=== PATIENT | female | born 1945 | race African-American/Black ===

== ENCOUNTER 2016-08-29 05:45 | Inpatient (IN) | payer MEDICARE, MEDICAID ==
[2016-08-29 06:34] VITALS: BP 160/80
[2016-08-29] MEDS ORDERED: Magnesium Hydroxide (MOM) 30 mL UDC PO PRN (08:40)
[2016-08-29] MEDS: Multivitamin Tab PO SCH (09:00)
[2016-08-29] MEDS: Benztropine 1 MG TAB PO SCH (20:56)
[2016-08-29] MEDS ORDERED: FLUPHENAZINE HCL 10 MG PO SCH (21:00)
--- NOTE | 2016-08-30 02:08 | History & Physical ---
CHIEF COMPLAINT: Medical evaluation and clearance. The patient is admitted to Inpatient Geropsych Unit. HISTORY OF PRESENT ILLNESS: This is a ____[id number] -[place] female with history of hypertension, mental illness and obesity, who was admitted initially from [facility]. Apparently, the patient was found altered. The patient was cleared medically and transferred for further care and treatment. The patient is not the best historian. Denies chest pain or shortness of breath. PAST MEDICAL HISTORY: As mentioned in History of Present Illness. PAST SURGICAL HISTORY: Denies surgeries in the past. ALLERGIES: No known drug allergies. MEDICATIONS: Tylenol, aspirin, Depakote, Colace, fenofibrate, Ativan, Prolixin, ____. FAMILY HISTORY: Noncontributory. SOCIAL HISTORY: The patient is an obvious smoker and drinker in the past. The patient used to work in a kitchen. 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 REVIEW OF SYSTEMS: GENERAL: Complains of not feeling well. HEENT: No blurred vision ____ LUNGS: No COPD or asthma. HEART: The patient has hypertension. She has coronary artery disease. ABDOMEN: No nausea, vomiting or pain. GENITOURINARY: The patient denies increase of frequency or dysuria. NEUROLOGIC: No headache, seizure or syncope. PSYCHIATRIC: Stable. PHYSICAL EXAMINATION: VITAL SIGNS: Blood pressure 160/80, respirations 18, pulse 80, temperature 96. GENERAL: Morbidly obese, elderly female in no acute distress, in a wheelchair. NECK: Supple. No mass. LUNGS: ____ breath sounds, otherwise clear to auscultation. HEART: Regular rate and rhythm without appreciable murmurs. ABDOMEN: Soft and nontender. Positive bowel sounds. Globular. EXTREMITIES: Positive excoriations. NEUROLOGIC: Limited. Moving all 4 extremities. Again, the patient is in a wheelchair. LABORATORY DATA: Laboratories from previous hospitalization with hemoglobin of 10.8, hematocrit 33, WBC 6.3. Chemistries are not available for review at this time. ASSESSMENT: 1. Hypertension. 2. Schizoaffective disorder. 3. ____. PLAN: We will continue the patient on current outpatient medication. We will make some adjustment. The patient is currently on aspirin. We monitor for any signs or symptoms of bleeding. We will have psychiatrist manage the patient for psych issues. We will continue to follow. The patient is medically cleared. We will place her on fall precaution. JOB# [id number]
--- NOTE | 2016-08-30 05:45 | Psychosocial Evaluation ---
IDENTIFYING DATA: The patient is a 71-year-old woman living by herself. Information was obtained by interviewing the patient as well as reviewing the admission papers and they are reliable. JUSTIFICATION FOR HOSPITALIZATION: The patient is admitted here on a voluntary basis in view of her acute psychosis and being gravely disabled. HISTORY OF PRESENT ILLNESS: This is the first psychiatric hospitalization to [facility] for this patient who is reported to have had all the medications ____ and not making any sense and the patient's place is noted to be ____ and she is not able to care for herself. The patient was initially taken to the [facility] in [place] and has been transferred over here for further care. During the evaluation, the patient has been getting easily irritable and angry. Review of the chart indicated that the patient has been on Prolixin and trazodone. The patient is getting easily irritable during the evaluation. Coping skills at the time of the hospitalization are reported to be poor. The patient has been argumentative with the staff members. I tried to calm the patient down. Sleep and appetite at the time of the hospitalization are also reported to be poor. The patient is noted to be very disheveled at the time of the evaluation. The patient has been getting easily upset when I am trying to calm her and ____ her to take the medications. The patient is very paranoid and is constantly asking me that I should contract her son right away and he cannot be in here. PAST PSYCHIATRIC HISTORY: Details are not known. MEDICAL HISTORY: Physical examination is requested to be done by Dr. Fuentes. SUBSTANCE ABUSE HISTORY: None. PHYSICAL OR SEXUAL ABUSE HISTORY: Details are not known. MENTAL STATUS EXAMINATION: The patient is a 71-year-old woman looking her stated age, superficially cooperative. Eye contact is poor. Mood is noted to be irritable. Affect is constricted. Insight and judgment at this time are noted to be very much impaired. Impulse control seems to be poor. Coping skills are also noted to be poor. The patient has paranoid delusions, but denies any command hallucinations. The patient is not able to contract for safety at this time. The patient is also gravely disabled. The patient is alert and oriented x3. Short term and long-term memories are poor at this time. DIAGNOSTIC IMPRESSION: AXIS I: Schizophrenia, chronic paranoid type. AXIS II: None. AXIS III: As per Dr. Fuentes. IMMEDIATE TREATMENT PLAN: The patient is going to be observed on the Inpatient Unit, provided with supportive psychotherapy. The patient is going to be closely monitored. Once stabilized, the patient is going to be discharged to [facility] to be followed up on an outpatient basis. JOB# [id number]
[2016-08-30] MEDS ORDERED: Non-Formulary Item 1 EA (Atenolol [Atenolol] 50 MG) PO SCH (09:00)
[2016-08-30] MEDS: Multivitamin Tab PO SCH ×2 (09:08→09:39)
[2016-08-30 11:29] LABS: BNP 22.6 pg/mL (5.0-100.0)
[2016-08-30 11:57] LABS: ALB/GLOB RATIO 0.7 (1.0-1.8); ALKALINE PHOSPHATASE 59 U/L (34-104); ANION GAP 5.1 (7.0-16.0); BILIRUBIN,TOTAL 0.4 mg/dL (0.3-1.0); BUN - UREA NITROGEN 9 mg/dL (7-25); BUN/CREATININE RATIO 12.9; CALCIUM SERUM 9.6 mg/dL (8.6-10.3); CARBON DIOXIDE 29.5 mEq/L (21.0-31.0); CHLORIDE 101 mEq/L (98-107); CHOLESTEROL 148 mg/dL (<200); CREATININE - SERUM 0.7 mg/dL (0.6-1.2); GLUCOSE 126 mg/dL (70-105); POTASSIUM SERUM 3.6 mEq/L (3.5-5.1); SGOT 21 U/L (13-39); SGPT/ALT 16 U/L (7-52); SODIUM SERUM 132 mEq/L (136-145); TRIGLYCERIDES 72 mg/dL (<150)
[2016-08-30 12:09] LABS: TSH 1.74 uIU/ml (0.34-5.60)
--- NOTE | 2016-08-30 13:46 | Internal Medicine Prog Note ---
Internal Medicine Subjective - Subjective Patient seen and examined:: with staff, chart reviewed Patient is:: verbal, interactive, in wheelchair Per staff patient is:: no adverse event, noncompliant, confused Internal Medicine Objective - Results Result Diagrams: 08/30/16 10:50 Recent Labs: Laboratory Last Values Sodium 132 mEq/L (136-145) L 08/30/16 10:50 Potassium 3.6 mEq/L (3.5-5.1) 08/30/16 10:50 Chloride 101 mEq/L (98-107) 08/30/16 10:50 Carbon Dioxide 29.5 mEq/L (21.0-31.0) 08/30/16 10:50 Anion Gap 5.1 (7.0-16.0) L 08/30/16 10:50 BUN 9 mg/dL (7-25) 08/30/16 10:50 Creatinine 0.7 mg/dL (0.6-1.2) 08/30/16 10:50 Est GFR ( Amer) TNP 08/30/16 10:50 Est GFR (Non-Af Amer) TNP 08/30/16 10:50 BUN/Creatinine Ratio 12.9 08/30/16 10:50 Glucose 126 mg/dL (70-105) H 08/30/16 10:50 Calcium 9.6 mg/dL (8.6-10.3) 08/30/16 10:50 Total Bilirubin 0.4 mg/dL (0.3-1.0) 08/30/16 10:50 AST 21 U/L (13-39) 08/30/16 10:50 ALT 16 U/L (7-52) 08/30/16 10:50 Alkaline Phosphatase 59 U/L (34-104) 08/30/16 10:50 Ammonia 28 umol/L (16-53) 08/30/16 10:50 B-Natriuretic Peptide 22.6 pg/mL (5.0-100.0) 08/30/16 10:50 Total Protein 7.1 gm/dL (6.0-8.3) 08/30/16 10:50 Albumin 2.9 gm/dL (3.7-5.3) L 08/30/16 10:50 Globulin 4.2 gm/dL 08/30/16 10:50 Albumin/Globulin Ratio 0.7 (1.0-1.8) L 08/30/16 10:50 Triglycerides 72 mg/dL (<150) 08/30/16 10:50 Cholesterol 148 mg/dL (<200) 08/30/16 10:50 LDL Cholesterol Direct 99 mg/dL (75-193) 08/30/16 10:50 HDL Cholesterol 27 mg/dL (23-92) 08/30/16 10:50 TSH 1.74 uIU/ml (0.34-5.60) 08/30/16 10:50 - Physical Exam Vitals and I&O: Vital Signs Temp 98 F 08/30/16 06:12 Pulse 101 08/30/16 09:38 Resp 20 08/30/16 12:29 BP 152/95 08/30/16 09:38 Pulse Ox 96 08/30/16 06:12 Intake & Output 08/29/16 08/30/16 08/30/16 18:59 06:59 18:59 Intake Total 800 120 Balance 800 120 Intake: Oral 800 120 Other: # Voids 3 3 # Bowel Movements 0 0 Stool Characteristics Formed Active Medications: Current Medications Acetaminophen (Tylenol) 650 mg PO Q4HR PRN PRN Reason: Pain (Mild) Stop: 10/28/16 08:39 Aspirin (Ecotrin) 81 mg PO DAILY [facility] Stop: 10/29/16 08:59 Last Admin: 08/30/16 09:38 Dose: 81 mg Atenolol (Tenormin) 50 mg PO DAILY [facility] Stop: 10/29/16 08:59 Last Admin: 08/30/16 09:38 Dose: 50 mg Benztropine Mesylate (Cogentin) 1 mg PO [facility] Stop: 10/28/16 20:59 Last Admin: 08/29/16 20:56 Dose: Not Given Fluphenazine HCl (Prolixin) 5 mg PO BID [facility] PRN Reason: Protocol Stop: 10/28/16 16:59 Last Admin: 08/30/16 09:39 Dose: 5 mg Fluphenazine HCl (Prolixin) 10 mg PO HS [facility] Stop: 10/28/16 20:59 Last Admin: 08/29/16 20:56 Dose: Not Given Hydrochlorothiazide (Hctz) 25 mg PO DAILY [facility] Stop: 10/29/16 08:59 Last Admin: 08/30/16 09:38 Dose: 25 mg Lorazepam (Ativan) 0.5 mg PO Q4HR PRN; Protocol PRN Reason: Anxiety Stop: 09/28/16 08:39 Multivitamins/Vitamin C (Theragran) 1 tab PO DAILY [facility] Stop: 10/28/16 08:59 Last Admin: 08/30/16 09:39 Dose: 1 tab Trazodone HCl (Desyrel) 50 mg PO HS PRN; Protocol PRN Reason: Insomnia Stop: 10/28/16 20:59 Zolpidem Tartrate (Ambien) 5 mg PO HS PRN PRN Reason: Insomnia Stop: 10/28/16 08:39 General: demented HEENT: NC/AT, PERRLA Neck: Supple, No JVD Lungs: CTAB Cardiovascular: RRR, Normal S1, Normal S2 Abdomen: soft non-tender, globular, positive bowel sound Extremities: excoriation Neurological: no change, disorganized, unable to follow command Internal Medicine Assmt/Plan - Assessment Assessment: htn obesity gait unstable - Plan Plan: cont on bp meds clonidine prn dw rn labs noted fall precaution
[2016-08-30] MEDS: Benztropine 1 MG TAB PO SCH (20:48)
--- NOTE | 2016-08-30 23:30 | Admit Criteria Form ---
Admit Criteria Forms - Admit Criteria Diagnosis: PSYCHIATRIC DISORDERS Clinical Indications for Inpatient Care (Place 'X' for any and all applicable criteria): Ongoing inpatient care may be needed for ANY ONE of the following(1)(2)(3)(4)(6) (7)(8): [ ]I. Danger to self or others not manageable at lower level of care. [X]II. Grave disability (eg, inability to perform self care necessary at lower level of care) [ ]III. Agitation or inappropriate behavior interfering with care for primary condition (eg, attempting to discontinue lines or drains prematurely, unable to cooperate with respiratory care) [ ]IV. Severe disability or disorder indicated by ALL of the following: [ ]a) Severe behavioral health disorder-related symptoms or condition indicated by ANY ONE of the following: [ ]i) Severe problem with cognition, memory, judgment, or impulse control [ ]ii) Severe clinical manifestations (eg, hallucinations, delusions, other acute psychotic symptoms, petros, extreme agitation or anxiety) [ ]b) Patient management at lower level of care is not feasible until acute intervention or modification is initiated. Extended stay beyond goal length of stay for the primary condition may be indicated when ANY ONE of the following is present: (1)(2)(3)(4): [ ]a) Patient is a danger to self or others and not manageable at lower level of care. [ ]b) Behavior crisis management, including physical or chemical restraints, is required and is not available at a lower level of care. [ ]c) Behavioral symptoms (e.g., agitation, somnolence, inappropriate behavior) are present, and are not manageable at a lower level of care. [ ]d) Patient cannot understand follow-up treatment and crisis plan. [ ]e) Provider and supports are not sufficiently available at lower level of care. [ ]f) Patient cannot participate (e.g., verify absence of plan for harm) and is in needed of monitoring. The original [facility] [employer] content created by [facility] [employer] has been revised. The portions of the content which have been revised are identified through the use of italic text or in bold, and [facility] has neither reviewed nor approved the modified material. All other unmodified content is copyright [facility] [employer]. Please see references footnoted in the original [facility] edition 2016 Admit Criteria Met?: Yes
--- NOTE | 2016-08-31 03:26 | Progress Notes ---
SUBJECTIVE: The patient was seen, discussed with staff, and chart reviewed. Remains guarded, still paranoid, irritable, still easily agitated, suspicious. The patient, however, is taking her medications, does not appear to have any side effects. She is currently taking Prolixin 5 mg p.o. b.i.d. and 10 mg p.o. at bedtime, and she is on Cogentin 1 mg p.o. at bedtime. Insight is still limited. Judgment remains impaired. ASSESSMENT: The patient is still in psychotic phase. PLAN: We will continue hospitalization. Continue stabilization. Continue supportive measures. [facility]# [id number]
[2016-08-31] MEDS: Multivitamin Tab PO SCH (09:04)
[2016-08-31 13:12] LABS: FOLIC ACID 14.2 ng/mL (>3.0)
--- NOTE | 2016-08-31 15:48 | Internal Medicine Prog Note ---
Internal Medicine Subjective - Subjective Patient seen and examined:: with staff, chart reviewed Patient is:: awake, interactive Per staff patient is:: no adverse event, noncompliant, confused Internal Medicine Objective - Results Result Diagrams: 08/30/16 10:50 Recent Labs: Laboratory Last Values Sodium 132 mEq/L (136-145) L 08/30/16 10:50 Potassium 3.6 mEq/L (3.5-5.1) 08/30/16 10:50 Chloride 101 mEq/L (98-107) 08/30/16 10:50 Carbon Dioxide 29.5 mEq/L (21.0-31.0) 08/30/16 10:50 Anion Gap 5.1 (7.0-16.0) L 08/30/16 10:50 BUN 9 mg/dL (7-25) 08/30/16 10:50 Creatinine 0.7 mg/dL (0.6-1.2) 08/30/16 10:50 Est GFR ( Amer) TNP 08/30/16 10:50 Est GFR (Non-Af Amer) TNP 08/30/16 10:50 BUN/Creatinine Ratio 12.9 08/30/16 10:50 Glucose 126 mg/dL (70-105) H 08/30/16 10:50 Calcium 9.6 mg/dL (8.6-10.3) 08/30/16 10:50 Total Bilirubin 0.4 mg/dL (0.3-1.0) 08/30/16 10:50 AST 21 U/L (13-39) 08/30/16 10:50 ALT 16 U/L (7-52) 08/30/16 10:50 Alkaline Phosphatase 59 U/L (34-104) 08/30/16 10:50 Ammonia 28 umol/L (16-53) 08/30/16 10:50 B-Natriuretic Peptide 22.6 pg/mL (5.0-100.0) 08/30/16 10:50 Total Protein 7.1 gm/dL (6.0-8.3) 08/30/16 10:50 Albumin 2.9 gm/dL (3.7-5.3) L 08/30/16 10:50 Globulin 4.2 gm/dL 08/30/16 10:50 Albumin/Globulin Ratio 0.7 (1.0-1.8) L 08/30/16 10:50 Triglycerides 72 mg/dL (<150) 08/30/16 10:50 Cholesterol 148 mg/dL (<200) 08/30/16 10:50 LDL Cholesterol Direct 99 mg/dL (75-193) 08/30/16 10:50 HDL Cholesterol 27 mg/dL (23-92) 08/30/16 10:50 Vitamin B12 367 pg/mL (211-946) 08/30/16 10:50 Folic Acid 14.2 ng/mL (>3.0) 08/30/16 10:50 TSH 1.74 uIU/ml (0.34-5.60) 08/30/16 10:50 - Physical Exam Vitals and I&O: Vital Signs Temp 97 F 08/31/16 14:21 Pulse 76 08/31/16 14:21 Resp 19 08/31/16 14:21 BP 137/84 08/31/16 14:21 Pulse Ox 96 08/31/16 14:21 Intake & Output 08/30/16 08/31/16 08/31/16 18:59 06:59 18:59 Intake Total 2400 120 Balance 2400 120 Intake: Oral 2400 120 Other: # Voids 4 2 # Bowel Movements 0 0 Active Medications: Current Medications Acetaminophen (Tylenol) 650 mg PO Q4HR PRN PRN Reason: Pain (Mild) Stop: 10/28/16 08:39 Aspirin (Ecotrin) 81 mg PO DAILY [facility] Stop: 10/29/16 08:59 Last Admin: 08/31/16 09:02 Dose: 81 mg Atenolol (Tenormin) 50 mg PO DAILY [facility] Stop: 10/29/16 08:59 Last Admin: 08/31/16 09:02 Dose: 50 mg Benztropine Mesylate (Cogentin) 1 mg PO HS [facility] Stop: 10/28/16 20:59 Last Admin: 08/30/16 20:48 Dose: Not Given Fluphenazine HCl (Prolixin) 5 mg PO BID [facility] PRN Reason: Protocol Stop: 10/28/16 16:59 Last Admin: 08/31/16 09:03 Dose: 5 mg Fluphenazine HCl (Prolixin) 10 mg PO HS [facility] Stop: 10/28/16 20:59 Last Admin: 08/30/16 20:48 Dose: Not Given Hydrochlorothiazide (Hctz) 25 mg PO DAILY [facility] Stop: 10/29/16 08:59 Last Admin: 08/31/16 09:03 Dose: 25 mg Lorazepam (Ativan) 0.5 mg PO Q4HR PRN; Protocol PRN Reason: Anxiety Stop: 09/28/16 08:39 Multivitamins/Vitamin C (Theragran) 1 tab PO DAILY [facility] Stop: 10/28/16 08:59 Last Admin: 08/31/16 09:04 Dose: 1 tab Trazodone HCl (Desyrel) 50 mg PO HS PRN; Protocol PRN Reason: Insomnia Stop: 10/28/16 20:59 Zolpidem Tartrate (Ambien) 5 mg PO HS PRN PRN Reason: Insomnia Stop: 10/28/16 08:39 General: demented HEENT: NC/AT, PERRLA Neck: Supple, No JVD Lungs: CTAB Cardiovascular: RRR, Normal S1, Normal S2 Abdomen: soft non-tender, globular, positive bowel sound Extremities: excoriation Neurological: no change Internal Medicine Assmt/Plan - Assessment Assessment: htn obesity gait unstable - Plan Plan: cont on bp meds clonidine prn dw rn labs noted fall precaution
[2016-08-31] MEDS: Benztropine 1 MG TAB PO SCH (20:29)
--- NOTE | 2016-09-01 05:47 | Progress Notes ---
SUBJECTIVE: The patient was seen, discussed with staff. Still guarded, paranoid, irritable, still episodes where she is suspicious and talking to herself. The patient, however, is taking her medication. Her sleep and appetite are fair. Her insight remains poor, judgment remains impaired. ASSESSMENT: The patient still in psychotic phase. PLAN: Continue medication management. Continue hospitalization. Continue current dose of Prolixin. [facility]# [id number]
[2016-09-01] MEDS: Multivitamin Tab PO SCH (08:08)
[2016-09-01] MEDS ORDERED: Haloperidol Lactate 5 mg/mL 1mL Vial ONE (10:03)
[2016-09-01] MEDS ORDERED: Haloperidol Lactate 5 mg/mL 1mL Vial IM ONE (10:05)
--- NOTE | 2016-09-01 15:17 | Internal Medicine Prog Note ---
Internal Medicine Subjective - Subjective Patient seen and examined:: with staff, chart reviewed Patient is:: awake, verbal, interactive Per staff patient is:: no adverse event, eating well, noncompliant Internal Medicine Objective - Results Result Diagrams: 08/30/16 10:50 Recent Labs: Laboratory Last Values Sodium 132 mEq/L (136-145) L 08/30/16 10:50 Potassium 3.6 mEq/L (3.5-5.1) 08/30/16 10:50 Chloride 101 mEq/L (98-107) 08/30/16 10:50 Carbon Dioxide 29.5 mEq/L (21.0-31.0) 08/30/16 10:50 Anion Gap 5.1 (7.0-16.0) L 08/30/16 10:50 BUN 9 mg/dL (7-25) 08/30/16 10:50 Creatinine 0.7 mg/dL (0.6-1.2) 08/30/16 10:50 Est GFR ( Amer) TNP 08/30/16 10:50 Est GFR (Non-Af Amer) TNP 08/30/16 10:50 BUN/Creatinine Ratio 12.9 08/30/16 10:50 Glucose 126 mg/dL (70-105) H 08/30/16 10:50 Calcium 9.6 mg/dL (8.6-10.3) 08/30/16 10:50 Total Bilirubin 0.4 mg/dL (0.3-1.0) 08/30/16 10:50 AST 21 U/L (13-39) 08/30/16 10:50 ALT 16 U/L (7-52) 08/30/16 10:50 Alkaline Phosphatase 59 U/L (34-104) 08/30/16 10:50 Ammonia 28 umol/L (16-53) 08/30/16 10:50 B-Natriuretic Peptide 22.6 pg/mL (5.0-100.0) 08/30/16 10:50 Total Protein 7.1 gm/dL (6.0-8.3) 08/30/16 10:50 Albumin 2.9 gm/dL (3.7-5.3) L 08/30/16 10:50 Globulin 4.2 gm/dL 08/30/16 10:50 Albumin/Globulin Ratio 0.7 (1.0-1.8) L 08/30/16 10:50 Triglycerides 72 mg/dL (<150) 08/30/16 10:50 Cholesterol 148 mg/dL (<200) 08/30/16 10:50 LDL Cholesterol Direct 99 mg/dL (75-193) 08/30/16 10:50 HDL Cholesterol 27 mg/dL (23-92) 08/30/16 10:50 Vitamin B12 367 pg/mL (211-946) 08/30/16 10:50 Folic Acid 14.2 ng/mL (>3.0) 08/30/16 10:50 TSH 1.74 uIU/ml (0.34-5.60) 08/30/16 10:50 - Physical Exam Vitals and I&O: Vital Signs Temp 98.0 F 09/01/16 14:00 Pulse 70 09/01/16 14:00 Resp 19 09/01/16 14:08 BP 138/60 09/01/16 14:00 Pulse Ox 97 09/01/16 14:00 Intake & Output 08/31/16 09/01/16 09/01/16 18:59 06:59 18:59 Intake Total 1900 240 Balance 1900 240 Intake: Oral 1900 240 Other: # Voids 3 3 # Bowel Movements 1 0 Active Medications: Current Medications Acetaminophen (Tylenol) 650 mg PO Q4HR PRN PRN Reason: Pain (Mild) Stop: 10/28/16 08:39 Aspirin (Ecotrin) 81 mg PO DAILY [facility] Stop: 10/29/16 08:59 Last Admin: 09/01/16 08:06 Dose: 81 mg Atenolol (Tenormin) 50 mg PO DAILY [facility] Stop: 10/29/16 08:59 Last Admin: 09/01/16 08:06 Dose: 50 mg Benztropine Mesylate (Cogentin) 1 mg PO HS [facility] Stop: 10/28/16 20:59 Last Admin: 08/31/16 20:29 Dose: 1 mg Fluphenazine HCl (Prolixin) 5 mg PO BID [facility] PRN Reason: Protocol Stop: 10/28/16 16:59 Last Admin: 09/01/16 08:07 Dose: 5 mg Fluphenazine HCl (Prolixin) 10 mg PO HS [facility] Stop: 10/28/16 20:59 Last Admin: 08/31/16 20:29 Dose: 10 mg Hydrochlorothiazide (Hctz) 25 mg PO DAILY [facility] Stop: 10/29/16 08:59 Last Admin: 09/01/16 08:08 Dose: 25 mg Lorazepam (Ativan) 0.5 mg PO Q4HR PRN; Protocol PRN Reason: Anxiety Stop: 09/28/16 08:39 Multivitamins/Vitamin C (Theragran) 1 tab PO DAILY [facility] Stop: 10/28/16 08:59 Last Admin: 09/01/16 08:08 Dose: 1 tab Trazodone HCl (Desyrel) 50 mg PO HS PRN; Protocol PRN Reason: Insomnia Stop: 10/28/16 20:59 Zolpidem Tartrate (Ambien) 5 mg PO HS PRN PRN Reason: Insomnia Stop: 10/28/16 08:39 Last Admin: 08/31/16 23:26 Dose: 5 mg General: demented HEENT: NC/AT, PERRLA Neck: Supple, No JVD Lungs: CTAB Cardiovascular: RRR, Normal S1, Normal S2 Abdomen: soft non-tender, globular, positive bowel sound Extremities: excoriation Neurological: no change Internal Medicine Assmt/Plan - Assessment Assessment: htn obesity gait unstable - Plan Plan: cont on bp meds clonidine prn dw rn labs noted fall precaution
[2016-09-01] MEDS: Benztropine 1 MG TAB PO SCH (21:45)
[2016-09-02] MEDS: Multivitamin Tab PO SCH (08:57)
--- NOTE | 2016-09-02 13:00 | Internal Medicine Prog Note ---
Internal Medicine Subjective - Subjective Patient seen and examined:: with staff, chart reviewed Patient is:: awake, verbal, interactive Per staff patient is:: no adverse event, confused Internal Medicine Objective - Results Result Diagrams: 08/30/16 10:50 Recent Labs: Laboratory Last Values Sodium 132 mEq/L (136-145) L 08/30/16 10:50 Potassium 3.6 mEq/L (3.5-5.1) 08/30/16 10:50 Chloride 101 mEq/L (98-107) 08/30/16 10:50 Carbon Dioxide 29.5 mEq/L (21.0-31.0) 08/30/16 10:50 Anion Gap 5.1 (7.0-16.0) L 08/30/16 10:50 BUN 9 mg/dL (7-25) 08/30/16 10:50 Creatinine 0.7 mg/dL (0.6-1.2) 08/30/16 10:50 Est GFR ( Amer) TNP 08/30/16 10:50 Est GFR (Non-Af Amer) TNP 08/30/16 10:50 BUN/Creatinine Ratio 12.9 08/30/16 10:50 Glucose 126 mg/dL (70-105) H 08/30/16 10:50 Calcium 9.6 mg/dL (8.6-10.3) 08/30/16 10:50 Total Bilirubin 0.4 mg/dL (0.3-1.0) 08/30/16 10:50 AST 21 U/L (13-39) 08/30/16 10:50 ALT 16 U/L (7-52) 08/30/16 10:50 Alkaline Phosphatase 59 U/L (34-104) 08/30/16 10:50 Ammonia 28 umol/L (16-53) 08/30/16 10:50 B-Natriuretic Peptide 22.6 pg/mL (5.0-100.0) 08/30/16 10:50 Total Protein 7.1 gm/dL (6.0-8.3) 08/30/16 10:50 Albumin 2.9 gm/dL (3.7-5.3) L 08/30/16 10:50 Globulin 4.2 gm/dL 08/30/16 10:50 Albumin/Globulin Ratio 0.7 (1.0-1.8) L 08/30/16 10:50 Triglycerides 72 mg/dL (<150) 08/30/16 10:50 Cholesterol 148 mg/dL (<200) 08/30/16 10:50 LDL Cholesterol Direct 99 mg/dL (75-193) 08/30/16 10:50 HDL Cholesterol 27 mg/dL (23-92) 08/30/16 10:50 Vitamin B12 367 pg/mL (211-946) 08/30/16 10:50 Folic Acid 14.2 ng/mL (>3.0) 08/30/16 10:50 TSH 1.74 uIU/ml (0.34-5.60) 08/30/16 10:50 - Physical Exam Vitals and I&O: Vital Signs Temp 98.6 F 09/02/16 07:06 Pulse 83 09/02/16 08:58 Resp 83 09/02/16 08:00 BP 142/77 09/02/16 08:58 Pulse Ox 97 09/02/16 07:06 Intake & Output 09/01/16 09/02/16 09/02/16 18:59 06:59 18:59 Intake Total 700 Balance 700 Intake: Oral 700 Other: # Voids 3 # Bowel Movements 0 Active Medications: Current Medications Acetaminophen (Tylenol) 650 mg PO Q4HR PRN PRN Reason: Pain (Mild) Stop: 10/28/16 08:39 Aspirin (Ecotrin) 81 mg PO DAILY [facility] Stop: 10/29/16 08:59 Last Admin: 09/02/16 08:57 Dose: 81 mg Atenolol (Tenormin) 50 mg PO DAILY [facility] Stop: 10/29/16 08:59 Last Admin: 09/02/16 08:58 Dose: 50 mg Benztropine Mesylate (Cogentin) 1 mg PO HS [facility] Stop: 10/28/16 20:59 Last Admin: 09/01/16 21:45 Dose: Not Given Fluphenazine HCl (Prolixin) 5 mg PO BID [facility] PRN Reason: Protocol Stop: 10/28/16 16:59 Last Admin: 09/02/16 08:58 Dose: 5 mg Fluphenazine HCl (Prolixin) 10 mg PO HS [facility] Stop: 10/28/16 20:59 Last Admin: 09/01/16 21:45 Dose: Not Given Hydrochlorothiazide (Hctz) 25 mg PO DAILY [facility] Stop: 10/29/16 08:59 Last Admin: 09/02/16 08:58 Dose: 25 mg Lorazepam (Ativan) 0.5 mg PO Q4HR PRN; Protocol PRN Reason: Anxiety Stop: 09/28/16 08:39 Multivitamins/Vitamin C (Theragran) 1 tab PO DAILY [facility] Stop: 10/28/16 08:59 Last Admin: 09/02/16 08:57 Dose: 1 tab Trazodone HCl (Desyrel) 50 mg PO HS PRN; Protocol PRN Reason: Insomnia Stop: 10/28/16 20:59 Zolpidem Tartrate (Ambien) 5 mg PO HS PRN PRN Reason: Insomnia Stop: 10/28/16 08:39 Last Admin: 08/31/16 23:26 Dose: 5 mg General: demented HEENT: NC/AT, PERRLA Neck: Supple, No JVD Lungs: CTAB Cardiovascular: RRR, Normal S1, Normal S2 Abdomen: soft non-tender, globular, positive bowel sound Extremities: excoriation Neurological: no change Internal Medicine Assmt/Plan - Assessment Assessment: htn obesity gait unstable - Plan Plan: cont on bp meds clonidine prn dw rn labs noted fall precaution
[2016-09-02] MEDS: Benztropine 1 MG TAB PO SCH (20:16)
--- NOTE | 2016-09-02 21:29 | Progress Notes ---
PSYCHIATRIC FOLLOWUP/PROGRESS NOTE: SUBJECTIVE: The patient is seen in Inpatient Unit. The patient is on trial medications for psychosis and diagnosis of schizophrenia. She is on trial of medications, trial of Prolixin for acute psychosis. She was placed on a 5150 for paranoid delusions, anxiety, restlessness and confusion. She continues to be argumentative, making threatening statements towards staff and does need frequent redirections and needs p.r.n. for escalations. She is still paranoid, unable to describe plans of care, unable to contract for safety. The patient has been on trial of medications, trial of Prolixin 10 mg per day with Navdeep p.r.n. The patient was placed originally on a hold. She was placed at [facility], admitted to ER for altered mental status. She was found to enter her house, ____ smoke or ____. Fire department had to break down the door to get her up. She had medications, unable to care for herself, was placed on a hold by police. PLAN: Plan is to continue close observation, continue hold status, continue 14-day hold. We will work on her medication compliance. JOB# [id number]
[2016-09-03] MEDS: Multivitamin Tab PO SCH (08:44)
--- NOTE | 2016-09-03 10:26 | Progress Notes ---
The patient was seen in inpatient unit. The patient was trialed medications for severe psychosis, trial of Prolixin. She is tolerating medications. She has no side effects. She remained delusional and paranoid, fearful, suspicious, ____ unable to contract for safety. She is refusing placement as she wants to live on the streets. She believes people are conspiring against her, so she only wants to work with black people. At this time, she remains on hold status. We are adjusting medications and titrating Prolixin for symptom relief; warning for side effects; encouraging group therapy. JOB# [id number]
--- NOTE | 2016-09-03 14:52 | Internal Medicine Prog Note ---
Internal Medicine Subjective - Subjective Patient seen and examined:: with staff, chart reviewed Patient is:: verbal, interactive Per staff patient is:: no adverse event, noncompliant, confused Internal Medicine Objective - Results Result Diagrams: 08/30/16 10:50 Recent Labs: Laboratory Last Values Sodium 132 mEq/L (136-145) L 08/30/16 10:50 Potassium 3.6 mEq/L (3.5-5.1) 08/30/16 10:50 Chloride 101 mEq/L (98-107) 08/30/16 10:50 Carbon Dioxide 29.5 mEq/L (21.0-31.0) 08/30/16 10:50 Anion Gap 5.1 (7.0-16.0) L 08/30/16 10:50 BUN 9 mg/dL (7-25) 08/30/16 10:50 Creatinine 0.7 mg/dL (0.6-1.2) 08/30/16 10:50 Est GFR ( Amer) TNP 08/30/16 10:50 Est GFR (Non-Af Amer) TNP 08/30/16 10:50 BUN/Creatinine Ratio 12.9 08/30/16 10:50 Glucose 126 mg/dL (70-105) H 08/30/16 10:50 Calcium 9.6 mg/dL (8.6-10.3) 08/30/16 10:50 Total Bilirubin 0.4 mg/dL (0.3-1.0) 08/30/16 10:50 AST 21 U/L (13-39) 08/30/16 10:50 ALT 16 U/L (7-52) 08/30/16 10:50 Alkaline Phosphatase 59 U/L (34-104) 08/30/16 10:50 Ammonia 28 umol/L (16-53) 08/30/16 10:50 B-Natriuretic Peptide 22.6 pg/mL (5.0-100.0) 08/30/16 10:50 Total Protein 7.1 gm/dL (6.0-8.3) 08/30/16 10:50 Albumin 2.9 gm/dL (3.7-5.3) L 08/30/16 10:50 Globulin 4.2 gm/dL 08/30/16 10:50 Albumin/Globulin Ratio 0.7 (1.0-1.8) L 08/30/16 10:50 Triglycerides 72 mg/dL (<150) 08/30/16 10:50 Cholesterol 148 mg/dL (<200) 08/30/16 10:50 LDL Cholesterol Direct 99 mg/dL (75-193) 08/30/16 10:50 HDL Cholesterol 27 mg/dL (23-92) 08/30/16 10:50 Vitamin B12 367 pg/mL (211-946) 08/30/16 10:50 Folic Acid 14.2 ng/mL (>3.0) 08/30/16 10:50 TSH 1.74 uIU/ml (0.34-5.60) 08/30/16 10:50 - Physical Exam Vitals and I&O: Vital Signs Temp 98.8 F 09/02/16 14:00 Pulse 79 09/03/16 08:43 Resp 19 09/03/16 08:00 BP 156/97 09/03/16 08:43 Pulse Ox 97 09/02/16 14:00 Intake & Output 09/02/16 09/03/16 09/03/16 18:59 06:59 18:59 Intake Total 1200 Balance 1200 Weight (lbs) 111.584 kg Intake: Oral 1200 Other: # Voids 3 # Bowel Movements 1 Active Medications: Current Medications Acetaminophen (Tylenol) 650 mg PO Q4HR PRN PRN Reason: Pain (Mild) Stop: 10/28/16 08:39 Aspirin (Ecotrin) 81 mg PO DAILY [facility] Stop: 10/29/16 08:59 Last Admin: 09/03/16 08:44 Dose: 81 mg Atenolol (Tenormin) 50 mg PO DAILY [facility] Stop: 10/29/16 08:59 Last Admin: 09/03/16 08:43 Dose: 50 mg Benztropine Mesylate (Cogentin) 1 mg PO HS [facility] Stop: 10/28/16 20:59 Last Admin: 09/02/16 20:16 Dose: 1 mg Fluphenazine HCl (Prolixin) 5 mg PO BID [facility] PRN Reason: Protocol Stop: 10/28/16 16:59 Last Admin: 09/03/16 08:44 Dose: 5 mg Fluphenazine HCl (Prolixin) 10 mg PO HS [facility] Stop: 10/28/16 20:59 Last Admin: 09/02/16 20:17 Dose: 10 mg Hydrochlorothiazide (Hctz) 25 mg PO DAILY [facility] Stop: 10/29/16 08:59 Last Admin: 09/03/16 08:42 Dose: 25 mg Lorazepam (Ativan) 0.5 mg PO Q4HR PRN; Protocol PRN Reason: Anxiety Stop: 09/28/16 08:39 Multivitamins/Vitamin C (Theragran) 1 tab PO DAILY [facility] Stop: 10/28/16 08:59 Last Admin: 09/03/16 08:44 Dose: 1 tab Trazodone HCl (Desyrel) 50 mg PO HS PRN; Protocol PRN Reason: Insomnia Stop: 10/28/16 20:59 Zolpidem Tartrate (Ambien) 5 mg PO HS PRN PRN Reason: Insomnia Stop: 10/28/16 08:39 Last Admin: 09/03/16 01:20 Dose: 5 mg General: demented HEENT: NC/AT, PERRLA Neck: Supple, No JVD Lungs: CTAB Cardiovascular: RRR, Normal S1, Normal S2 Abdomen: globular, positive bowel sound Extremities: excoriation Neurological: no change Internal Medicine Assmt/Plan - Assessment Assessment: htn obesity gait unstable - Plan Plan: cont on bp meds clonidine prn dw rn labs noted fall precaution
[2016-09-03] MEDS: Benztropine 1 MG TAB PO SCH (20:33)
--- NOTE | 2016-09-04 06:43 | Progress Notes ---
The patient is seen in the Inpatient Unit. The patient is on trial of medications for severe psychosis. She is paranoid, delusional, responding to internal stimuli. She is still argumentative and delusional, does not know where she would go. She was AWOL from the hospital, unable to take care of herself, no viable plan for self-care. She does not want to go to her hearing. She did not attend her probable cause hearing. She is easily agitated and aggressive. We will work with her towards placement and stabilization. Continue Prolixin for severe psychosis. JOB# [id number]
[2016-09-04] MEDS: Multivitamin Tab PO SCH (09:36)
--- NOTE | 2016-09-04 15:03 | Internal Medicine Prog Note ---
Internal Medicine Subjective - Subjective Service Date: 09/04/16 Patient seen and examined:: with staff Patient is:: awake Per staff patient is:: no adverse event Internal Medicine Objective - Results Result Diagrams: 08/30/16 10:50 Recent Labs: Laboratory Last Values Sodium 132 mEq/L (136-145) L 08/30/16 10:50 Potassium 3.6 mEq/L (3.5-5.1) 08/30/16 10:50 Chloride 101 mEq/L (98-107) 08/30/16 10:50 Carbon Dioxide 29.5 mEq/L (21.0-31.0) 08/30/16 10:50 Anion Gap 5.1 (7.0-16.0) L 08/30/16 10:50 BUN 9 mg/dL (7-25) 08/30/16 10:50 Creatinine 0.7 mg/dL (0.6-1.2) 08/30/16 10:50 Est GFR ( Amer) TNP 08/30/16 10:50 Est GFR (Non-Af Amer) TNP 08/30/16 10:50 BUN/Creatinine Ratio 12.9 08/30/16 10:50 Glucose 126 mg/dL (70-105) H 08/30/16 10:50 Calcium 9.6 mg/dL (8.6-10.3) 08/30/16 10:50 Total Bilirubin 0.4 mg/dL (0.3-1.0) 08/30/16 10:50 AST 21 U/L (13-39) 08/30/16 10:50 ALT 16 U/L (7-52) 08/30/16 10:50 Alkaline Phosphatase 59 U/L (34-104) 08/30/16 10:50 Ammonia 28 umol/L (16-53) 08/30/16 10:50 B-Natriuretic Peptide 22.6 pg/mL (5.0-100.0) 08/30/16 10:50 Total Protein 7.1 gm/dL (6.0-8.3) 08/30/16 10:50 Albumin 2.9 gm/dL (3.7-5.3) L 08/30/16 10:50 Globulin 4.2 gm/dL 08/30/16 10:50 Albumin/Globulin Ratio 0.7 (1.0-1.8) L 08/30/16 10:50 Triglycerides 72 mg/dL (<150) 08/30/16 10:50 Cholesterol 148 mg/dL (<200) 08/30/16 10:50 LDL Cholesterol Direct 99 mg/dL (75-193) 08/30/16 10:50 HDL Cholesterol 27 mg/dL (23-92) 08/30/16 10:50 Vitamin B12 367 pg/mL (211-946) 08/30/16 10:50 Folic Acid 14.2 ng/mL (>3.0) 08/30/16 10:50 TSH 1.74 uIU/ml (0.34-5.60) 08/30/16 10:50 - Physical Exam Vitals and I&O: Vital Signs Temp 97.3 F 09/03/16 15:47 Pulse 95 09/04/16 09:34 Resp 19 09/04/16 08:00 BP 159/80 09/04/16 09:34 Pulse Ox 99 09/03/16 15:47 Intake & Output 09/03/16 09/04/16 09/04/16 18:59 06:59 18:59 Intake Total 800 Balance 800 Weight (lbs) 246 lb Intake: Oral 800 Other: # Voids 4 # Bowel Movements 1 Active Medications: Current Medications Acetaminophen (Tylenol) 650 mg PO Q4HR PRN PRN Reason: Pain (Mild) Stop: 10/28/16 08:39 Aspirin (Ecotrin) 81 mg PO DAILY [facility] Stop: 10/29/16 08:59 Last Admin: 09/04/16 09:34 Dose: 81 mg Atenolol (Tenormin) 50 mg PO DAILY [facility] Stop: 10/29/16 08:59 Last Admin: 09/04/16 09:34 Dose: 50 mg Benztropine Mesylate (Cogentin) 1 mg PO HS [facility] Stop: 10/28/16 20:59 Last Admin: 09/03/16 20:33 Dose: 1 mg Fluphenazine HCl (Prolixin) 5 mg PO BID [facility] PRN Reason: Protocol Stop: 10/28/16 16:59 Last Admin: 09/04/16 09:34 Dose: 5 mg Fluphenazine HCl (Prolixin) 10 mg PO HS [facility] Stop: 10/28/16 20:59 Last Admin: 09/03/16 20:33 Dose: 10 mg Hydrochlorothiazide (Hctz) 25 mg PO DAILY [facility] Stop: 10/29/16 08:59 Last Admin: 09/04/16 09:33 Dose: 25 mg Lorazepam (Ativan) 0.5 mg PO Q4HR PRN; Protocol PRN Reason: Anxiety Stop: 09/28/16 08:39 Multivitamins/Vitamin C (Theragran) 1 tab PO DAILY [facility] Stop: 10/28/16 08:59 Last Admin: 09/04/16 09:36 Dose: Not Given Trazodone HCl (Desyrel) 50 mg PO HS PRN; Protocol PRN Reason: Insomnia Stop: 10/28/16 20:59 Zolpidem Tartrate (Ambien) 5 mg PO HS PRN PRN Reason: Insomnia Stop: 10/28/16 08:39 Last Admin: 09/03/16 22:24 Dose: 5 mg General: alert HEENT: NC/AT, PERRLA Neck: Supple Lungs: CTAB Cardiovascular: RRR, Normal S1, Normal S2, without murmur Abdomen: soft non-tender Internal Medicine Assmt/Plan - Assessment Assessment: htn obesity gait unstable - Plan Plan: fall precautions cpm
[2016-09-04] MEDS: Benztropine 1 MG TAB PO SCH (20:39)
--- NOTE | 2016-09-05 05:38 | Progress Notes ---
Dr. Bubba Harrison covering for Dr. Darvin Manjarrez. SUBJECTIVE: The patient was seen. Remains paranoid, irritable, still disorganized. The patient, however, is taking her medications, does not appear to have any side effects. Her sleep and appetite are fair. Her thought process is fragmented. The patient continues to have episodes where she appears to be responding to internal stimuli. ASSESSMENT: The patient is still in psychotic phase. PLAN: We will continue Prolixin 5 mg by mouth twice a day and 10 mg by mouth at bedtime. Continue stabilization. JOB# [id number]
[2016-09-05] MEDS: Multivitamin Tab PO SCH (10:34)
--- NOTE | 2016-09-05 12:34 | Internal Medicine Prog Note ---
Internal Medicine Subjective - Subjective Service Date: 09/05/16 Patient seen and examined:: with staff Patient is:: awake Per staff patient is:: no adverse event Internal Medicine Objective - Results Result Diagrams: 08/30/16 10:50 Recent Labs: Laboratory Last Values Sodium 132 mEq/L (136-145) L 08/30/16 10:50 Potassium 3.6 mEq/L (3.5-5.1) 08/30/16 10:50 Chloride 101 mEq/L (98-107) 08/30/16 10:50 Carbon Dioxide 29.5 mEq/L (21.0-31.0) 08/30/16 10:50 Anion Gap 5.1 (7.0-16.0) L 08/30/16 10:50 BUN 9 mg/dL (7-25) 08/30/16 10:50 Creatinine 0.7 mg/dL (0.6-1.2) 08/30/16 10:50 Est GFR ( Amer) TNP 08/30/16 10:50 Est GFR (Non-Af Amer) TNP 08/30/16 10:50 BUN/Creatinine Ratio 12.9 08/30/16 10:50 Glucose 126 mg/dL (70-105) H 08/30/16 10:50 Calcium 9.6 mg/dL (8.6-10.3) 08/30/16 10:50 Total Bilirubin 0.4 mg/dL (0.3-1.0) 08/30/16 10:50 AST 21 U/L (13-39) 08/30/16 10:50 ALT 16 U/L (7-52) 08/30/16 10:50 Alkaline Phosphatase 59 U/L (34-104) 08/30/16 10:50 Ammonia 28 umol/L (16-53) 08/30/16 10:50 B-Natriuretic Peptide 22.6 pg/mL (5.0-100.0) 08/30/16 10:50 Total Protein 7.1 gm/dL (6.0-8.3) 08/30/16 10:50 Albumin 2.9 gm/dL (3.7-5.3) L 08/30/16 10:50 Globulin 4.2 gm/dL 08/30/16 10:50 Albumin/Globulin Ratio 0.7 (1.0-1.8) L 08/30/16 10:50 Triglycerides 72 mg/dL (<150) 08/30/16 10:50 Cholesterol 148 mg/dL (<200) 08/30/16 10:50 LDL Cholesterol Direct 99 mg/dL (75-193) 08/30/16 10:50 HDL Cholesterol 27 mg/dL (23-92) 08/30/16 10:50 Vitamin B12 367 pg/mL (211-946) 08/30/16 10:50 Folic Acid 14.2 ng/mL (>3.0) 08/30/16 10:50 TSH 1.74 uIU/ml (0.34-5.60) 08/30/16 10:50 - Physical Exam Vitals and I&O: Vital Signs Temp 97.8 F 09/04/16 21:56 Pulse 0 09/05/16 10:34 Resp 20 09/04/16 21:56 BP 0/0 09/05/16 10:34 Pulse Ox 96 09/04/16 21:56 Intake & Output 09/04/16 09/05/16 09/05/16 18:59 06:59 18:59 Intake Total 1800 120 Balance 1800 120 Intake: Oral 1800 120 Other: # Voids 4 3 # Bowel Movements 0 Active Medications: Current Medications Acetaminophen (Tylenol) 650 mg PO Q4HR PRN PRN Reason: Pain (Mild) Stop: 10/28/16 08:39 Aspirin (Ecotrin) 81 mg PO DAILY [facility] Stop: 10/29/16 08:59 Last Admin: 09/05/16 10:34 Dose: 81 mg Atenolol (Tenormin) 50 mg PO DAILY [facility] Stop: 10/29/16 08:59 Last Admin: 09/05/16 10:34 Dose: 50 mg Benztropine Mesylate (Cogentin) 1 mg PO HS [facility] Stop: 10/28/16 20:59 Last Admin: 09/04/16 20:39 Dose: 1 mg Divalproex Sodium (Depakote Sprinkle) 125 mg PO Q12HR [facility] PRN Reason: Protocol Stop: 11/04/16 20:59 Fluphenazine HCl (Prolixin) 5 mg PO BID [facility] PRN Reason: Protocol Stop: 10/28/16 16:59 Last Admin: 09/05/16 10:33 Dose: 5 mg Fluphenazine HCl (Prolixin) 10 mg PO HS [facility] Stop: 10/28/16 20:59 Last Admin: 09/04/16 20:39 Dose: 10 mg Hydrochlorothiazide (Hctz) 25 mg PO DAILY [facility] Stop: 10/29/16 08:59 Last Admin: 09/05/16 10:33 Dose: 25 mg Lorazepam (Ativan) 0.5 mg PO Q4HR PRN; Protocol PRN Reason: Anxiety Stop: 09/28/16 08:39 Last Admin: 09/05/16 00:50 Dose: 0.5 mg Multivitamins/Vitamin C (Theragran) 1 tab PO DAILY [facility] Stop: 10/28/16 08:59 Last Admin: 09/05/16 10:34 Dose: 1 tab Trazodone HCl (Desyrel) 50 mg PO HS PRN; Protocol PRN Reason: Insomnia Stop: 10/28/16 20:59 Zolpidem Tartrate (Ambien) 5 mg PO HS PRN PRN Reason: Insomnia Stop: 10/28/16 08:39 Last Admin: 09/03/16 22:24 Dose: 5 mg General: alert HEENT: NC/AT, PERRLA Neck: Supple Lungs: CTAB Cardiovascular: RRR, Normal S1, Normal S2, without murmur Abdomen: soft non-tender, non-distended Extremities: clear Internal Medicine Assmt/Plan - Assessment Assessment: htn obesity gait unstable - Plan Plan: fall precautions cpm
[2016-09-05] MEDS: Benztropine 1 MG TAB PO SCH (21:43)
--- NOTE | 2016-09-06 05:45 | Progress Notes ---
SUBJECTIVE: The patient was seen, discussed with staff. Remains angry, irritable, is still having the yelling episodes. Continues to require redirecting by staff. Her insight is poor, judgment remains impaired. ASSESSMENT: The patient is still in psychotic phase. PLAN: Continue current dose of Prolixin. Add Depakote 125 mg p.o. b.i.d. Monitor condition closely. JOB# [id number]
[2016-09-06] MEDS: Multivitamin Tab PO SCH (09:24)
--- NOTE | 2016-09-06 12:32 | Internal Medicine Prog Note ---
Internal Medicine Subjective - Subjective Service Date: 09/06/16 Patient seen and examined:: with staff Patient is:: awake Per staff patient is:: no adverse event Internal Medicine Objective - Results Result Diagrams: 08/30/16 10:50 Recent Labs: Laboratory Last Values Sodium 132 mEq/L (136-145) L 08/30/16 10:50 Potassium 3.6 mEq/L (3.5-5.1) 08/30/16 10:50 Chloride 101 mEq/L (98-107) 08/30/16 10:50 Carbon Dioxide 29.5 mEq/L (21.0-31.0) 08/30/16 10:50 Anion Gap 5.1 (7.0-16.0) L 08/30/16 10:50 BUN 9 mg/dL (7-25) 08/30/16 10:50 Creatinine 0.7 mg/dL (0.6-1.2) 08/30/16 10:50 Est GFR ( Amer) TNP 08/30/16 10:50 Est GFR (Non-Af Amer) TNP 08/30/16 10:50 BUN/Creatinine Ratio 12.9 08/30/16 10:50 Glucose 126 mg/dL (70-105) H 08/30/16 10:50 Calcium 9.6 mg/dL (8.6-10.3) 08/30/16 10:50 Total Bilirubin 0.4 mg/dL (0.3-1.0) 08/30/16 10:50 AST 21 U/L (13-39) 08/30/16 10:50 ALT 16 U/L (7-52) 08/30/16 10:50 Alkaline Phosphatase 59 U/L (34-104) 08/30/16 10:50 Ammonia 28 umol/L (16-53) 08/30/16 10:50 B-Natriuretic Peptide 22.6 pg/mL (5.0-100.0) 08/30/16 10:50 Total Protein 7.1 gm/dL (6.0-8.3) 08/30/16 10:50 Albumin 2.9 gm/dL (3.7-5.3) L 08/30/16 10:50 Globulin 4.2 gm/dL 08/30/16 10:50 Albumin/Globulin Ratio 0.7 (1.0-1.8) L 08/30/16 10:50 Triglycerides 72 mg/dL (<150) 08/30/16 10:50 Cholesterol 148 mg/dL (<200) 08/30/16 10:50 LDL Cholesterol Direct 99 mg/dL (75-193) 08/30/16 10:50 HDL Cholesterol 27 mg/dL (23-92) 08/30/16 10:50 Vitamin B12 367 pg/mL (211-946) 08/30/16 10:50 Folic Acid 14.2 ng/mL (>3.0) 08/30/16 10:50 TSH 1.74 uIU/ml (0.34-5.60) 08/30/16 10:50 - Physical Exam Vitals and I&O: Vital Signs Temp 97.8 F 09/05/16 19:01 Pulse 94 09/06/16 09:44 Resp 18 09/06/16 09:44 BP 151/83 09/06/16 09:26 Pulse Ox 98 09/05/16 19:01 Intake & Output 09/05/16 09/06/16 09/06/16 18:59 06:59 18:59 Intake Total 250 Output Total 100 Balance 150 Intake: Oral 250 Output: Urine 100 Other: # Bowel Movements 1 Active Medications: Current Medications Acetaminophen (Tylenol) 650 mg PO Q4HR PRN PRN Reason: Pain (Mild) Stop: 10/28/16 08:39 Last Admin: 09/06/16 09:34 Dose: 650 mg Aspirin (Ecotrin) 81 mg PO DAILY [facility] Stop: 10/29/16 08:59 Last Admin: 09/06/16 09:24 Dose: 81 mg Atenolol (Tenormin) 50 mg PO DAILY [facility] Stop: 10/29/16 08:59 Last Admin: 09/06/16 09:26 Dose: 50 mg Benztropine Mesylate (Cogentin) 1 mg PO HS [facility] Stop: 10/28/16 20:59 Last Admin: 09/05/16 21:43 Dose: 1 mg Divalproex Sodium (Depakote Sprinkle) 125 mg PO Q12HR [facility] PRN Reason: Protocol Stop: 11/04/16 20:59 Last Admin: 09/06/16 09:24 Dose: 125 mg Fluphenazine HCl (Prolixin) 5 mg PO BID [facility] PRN Reason: Protocol Stop: 10/28/16 16:59 Last Admin: 09/06/16 09:25 Dose: 5 mg Fluphenazine HCl (Prolixin) 10 mg PO HS [facility] Stop: 10/28/16 20:59 Last Admin: 09/05/16 21:43 Dose: 10 mg Hydrochlorothiazide (Hctz) 25 mg PO DAILY [facility] Stop: 10/29/16 08:59 Last Admin: 09/06/16 09:25 Dose: 25 mg Lorazepam (Ativan) 0.5 mg PO Q4HR PRN; Protocol PRN Reason: Anxiety Stop: 09/28/16 08:39 Last Admin: 09/06/16 09:26 Dose: 0.5 mg Multivitamins/Vitamin C (Theragran) 1 tab PO DAILY [facility] Stop: 10/28/16 08:59 Last Admin: 09/06/16 09:24 Dose: 1 tab Trazodone HCl (Desyrel) 50 mg PO HS PRN; Protocol PRN Reason: Insomnia Stop: 10/28/16 20:59 Zolpidem Tartrate (Ambien) 5 mg PO HS PRN PRN Reason: Insomnia Stop: 10/28/16 08:39 Last Admin: 09/03/16 22:24 Dose: 5 mg General: alert HEENT: NC/AT, PERRLA Neck: Supple Lungs: CTAB Cardiovascular: RRR, Normal S1, Normal S2, without murmur Abdomen: soft non-tender Internal Medicine Assmt/Plan - Assessment Assessment: htn obesity gait unstable - Plan Plan: fall precautions cpm
[2016-09-06] MEDS: Benztropine 1 MG TAB PO SCH (21:27)
--- NOTE | 2016-09-07 06:10 | Progress Notes ---
The patient is seen in Emergency Room. The patient is on trial medications for psychotic features. She feels medicines ____ paranoid delusions. She denies side effects. She had some improvement in her ADLs and coping skills. She has labile mood, irritability and restlessness. She denies suicidal thoughts and denies side effects of medication. We are monitoring daily for response. Discharge, when safe to do so. [facility]# [id number]
[2016-09-07] MEDS: Multivitamin Tab PO SCH (08:50)
--- NOTE | 2016-09-07 12:00 | Internal Medicine Prog Note ---
Internal Medicine Subjective - Subjective Service Date: 09/07/16 Patient seen and examined:: with staff Patient is:: awake Per staff patient is:: no adverse event Internal Medicine Objective - Results Result Diagrams: 08/30/16 10:50 Recent Labs: Laboratory Last Values Sodium 132 mEq/L (136-145) L 08/30/16 10:50 Potassium 3.6 mEq/L (3.5-5.1) 08/30/16 10:50 Chloride 101 mEq/L (98-107) 08/30/16 10:50 Carbon Dioxide 29.5 mEq/L (21.0-31.0) 08/30/16 10:50 Anion Gap 5.1 (7.0-16.0) L 08/30/16 10:50 BUN 9 mg/dL (7-25) 08/30/16 10:50 Creatinine 0.7 mg/dL (0.6-1.2) 08/30/16 10:50 Est GFR ( Amer) TNP 08/30/16 10:50 Est GFR (Non-Af Amer) TNP 08/30/16 10:50 BUN/Creatinine Ratio 12.9 08/30/16 10:50 Glucose 126 mg/dL (70-105) H 08/30/16 10:50 Calcium 9.6 mg/dL (8.6-10.3) 08/30/16 10:50 Total Bilirubin 0.4 mg/dL (0.3-1.0) 08/30/16 10:50 AST 21 U/L (13-39) 08/30/16 10:50 ALT 16 U/L (7-52) 08/30/16 10:50 Alkaline Phosphatase 59 U/L (34-104) 08/30/16 10:50 Ammonia 28 umol/L (16-53) 08/30/16 10:50 B-Natriuretic Peptide 22.6 pg/mL (5.0-100.0) 08/30/16 10:50 Total Protein 7.1 gm/dL (6.0-8.3) 08/30/16 10:50 Albumin 2.9 gm/dL (3.7-5.3) L 08/30/16 10:50 Globulin 4.2 gm/dL 08/30/16 10:50 Albumin/Globulin Ratio 0.7 (1.0-1.8) L 08/30/16 10:50 Triglycerides 72 mg/dL (<150) 08/30/16 10:50 Cholesterol 148 mg/dL (<200) 08/30/16 10:50 LDL Cholesterol Direct 99 mg/dL (75-193) 08/30/16 10:50 HDL Cholesterol 27 mg/dL (23-92) 08/30/16 10:50 Vitamin B12 367 pg/mL (211-946) 08/30/16 10:50 Folic Acid 14.2 ng/mL (>3.0) 08/30/16 10:50 TSH 1.74 uIU/ml (0.34-5.60) 08/30/16 10:50 - Physical Exam Vitals and I&O: Vital Signs Temp 97.6 F 09/06/16 19:59 Pulse 82 09/07/16 08:51 Resp 20 09/06/16 19:59 BP 120/59 09/07/16 08:51 Pulse Ox 97 09/06/16 19:59 Intake & Output 09/06/16 09/07/16 09/07/16 18:59 06:59 18:59 Intake Total 800 240 Output Total 2 Balance 800 238 Intake: Oral 800 240 Output: Urine 2 Other: # Voids 4 1 # Bowel Movements 1 0 Active Medications: Current Medications Acetaminophen (Tylenol) 650 mg PO Q4HR PRN PRN Reason: Pain (Mild) Stop: 10/28/16 08:39 Last Admin: 09/07/16 10:01 Dose: 650 mg Aspirin (Ecotrin) 81 mg PO DAILY [facility] Stop: 10/29/16 08:59 Last Admin: 09/07/16 08:51 Dose: 81 mg Atenolol (Tenormin) 50 mg PO DAILY [facility] Stop: 10/29/16 08:59 Last Admin: 09/07/16 08:51 Dose: Not Given Benztropine Mesylate (Cogentin) 1 mg PO HS [facility] Stop: 10/28/16 20:59 Last Admin: 09/06/16 21:27 Dose: 1 mg Divalproex Sodium (Depakote Sprinkle) 125 mg PO Q12HR [facility] PRN Reason: Protocol Stop: 11/04/16 20:59 Last Admin: 09/07/16 08:51 Dose: 125 mg Fluphenazine HCl (Prolixin) 5 mg PO BID [facility] PRN Reason: Protocol Stop: 10/28/16 16:59 Last Admin: 09/07/16 08:51 Dose: 5 mg Fluphenazine HCl (Prolixin) 10 mg PO HS [facility] Stop: 10/28/16 20:59 Last Admin: 09/06/16 21:26 Dose: 10 mg Hydrochlorothiazide (Hctz) 25 mg PO DAILY [facility] Stop: 10/29/16 08:59 Last Admin: 09/07/16 08:51 Dose: Not Given Lorazepam (Ativan) 0.5 mg PO Q4HR PRN; Protocol PRN Reason: Anxiety Stop: 09/28/16 08:39 Last Admin: 09/06/16 09:26 Dose: 0.5 mg Multivitamins/Vitamin C (Theragran) 1 tab PO DAILY NORMAN Stop: 10/28/16 08:59 Last Admin: 09/07/16 08:50 Dose: 1 tab Trazodone HCl (Desyrel) 50 mg PO HS PRN; Protocol PRN Reason: Insomnia Stop: 10/28/16 20:59 Zolpidem Tartrate (Ambien) 5 mg PO HS PRN PRN Reason: Insomnia Stop: 10/28/16 08:39 Last Admin: 09/03/16 22:24 Dose: 5 mg General: alert HEENT: NC/AT, PERRLA Neck: Supple Lungs: CTAB Cardiovascular: RRR, Normal S1, Normal S2, without murmur Abdomen: soft non-tender, non-distended Extremities: clear Internal Medicine Assmt/Plan - Assessment Assessment: htn obesity gait unstable - Plan Plan: fall precautions cpm
--- NOTE | 2016-10-22 00:54 | Discharge Summary ---
ADMITTING DIAGNOSIS: Schizophrenia. ____: Acute psychosis. HISTORY OF PRESENT ILLNESS: The patient was admitted; this is her first hospitalization to this hospital for paranoia, delusional content, extreme agitation, resistance towards care, striking out behaviors, and confusion. TREATMENT COURSE/MEDICAL: The patient had no new medical problem or laboratory issue. TREATMENT COURSE/PSYCHIATRIC: The patient was treated with medications, treated with Prolixin for acute psychosis; trazodone for insomnia. She was engaged in group therapy and individual therapy. During the therapy, she was improved in her insight, and in her coping skills. She tolerated medications well without side effects. At the time of discharge, she was significantly improved, did agree to contract for safety and not harm self or others. MEDICATIONS ON DISCHARGE: Prolixin 10 mg at bedtime and trazodone 50 mg at bedtime. DIFFERENTIAL DIAGNOSES: AXIS I: Schizophrenia, acute exacerbation. AXIS II: Deferred. AXIS III: None. PLAN: Plan is to discharge the patient to outpatient facility with continued followup. [facility]# [id number]
== END 2016-09-07 17:15 | DRG 885 ==
LOC: GERO 05:45
PROVIDERS: ADMIT Psychiatry & Neurology Psychiatry; ATTEND Psychiatry & Neurology Psychiatry
DX: F25.9 Schizoaffective disorder, unspecified (principal); Z68.41 Body mass index [BMI] 40.0-44.9, adult; I10 Essential (primary) hypertension; E66.9 Obesity, unspecified; F17.210 Nicotine dependence, cigarettes, uncomplicated; R26.9 Unspecified abnormalities of gait and mobility; Z79.82 Long term (current) use of aspirin
CPT/HCPCS: 36415-UA; 80053-TC; 80061-TC; 82140-TC; 82607-90; 82746-90; 83880-TC; 84443-TC; 90899; G0410; J1200; J1630; J2060; Z7610